=== PATIENT | female | born 1990 | race Hispanic/Latino ===

== ENCOUNTER 2017-04-19 13:27 | Inpatient (IN) | payer BC ==
--- NOTE | 2017-04-19 14:36 | C.PDOC ---
History Of Present Illness 26 year old female with Hx of depression, SI/HI and insomnia presents to the ED complaining of increased depression that started last week, she tried to OD with meclizine and other drugs last Saturday, patient went to her psychiatrist who sent her here for evaluation. Time Seen by Provider: 04/19/17 13:44 Chief Complaint (Nursing): Psychiatric Evaluation History Per: Patient History/Exam Limitations: no limitations Onset/Duration Of Symptoms: Hrs Current Symptoms Are (Timing): Still Present Suicide/Self Injury Attempted (Context): Ingestion Modifying Factor(s): None Associated Symptoms: Depression, Suicidal Thoughts, Suicidal Plan Recent travel outside of the [place]: No Additional History Per: Patient Past Medical History Reviewed: Historical Data, Nursing Documentation, Vital Signs Vital Signs: Last Vital Signs Temp 97.3 F L 04/19/17 13:33 Pulse 70 04/19/17 13:33 Resp 16 04/19/17 13:33 BP 129/86 04/19/17 13:33 Pulse Ox 98 04/19/17 16:52 - Medical History PMH: Anxiety, Depression Surgical History: No Surg Hx Family History: States: Unknown Family Hx - Social History Hx Alcohol Use: Yes Hx Substance Use: Yes - Immunization History Hx Tetanus Toxoid Vaccination: No Hx Influenza Vaccination: No Hx Pneumococcal Vaccination: No Review Of Systems Constitutional: Negative for: Fever, Chills Cardiovascular: Negative for: Chest Pain Respiratory: Negative for: Shortness of Breath Gastrointestinal: Negative for: Nausea, Vomiting, Abdominal Pain Neurological: Negative for: Weakness, Numbness Psych: Positive for: Depression, Suicidal ideation Physical Exam - Physical Exam Appears: Non-toxic, Other (Depressed) Skin: Normal Color, Warm, Dry Head: Atraumatic, Normacephalic Oral Mucosa: Moist Neck: Normal ROM, Supple Chest: Symmetrical Cardiovascular: Rhythm Regular, No Murmur Respiratory: Normal Breath Sounds, No Accessory Muscle Use, No Rales, No Rhonchi , No Wheezing Gastrointestinal/Abdominal: Soft, No Tenderness, No Guarding, No Rebound Extremity: Normal ROM, No Pedal Edema, No Deformity, No Swelling Neurological/Psych: Oriented x3, Normal Speech, Normal Cognition, Other (No focal deficits) Gait: Steady ED Course And Treatment - Laboratory Results Result Diagrams: 04/19/17 14:56 04/19/17 14:56 Lab Interpretation: No Acute Changes O2 Sat by Pulse Oximetry: 98 (On RA) Pulse Ox Interpretation: Normal Medical Decision Making Medical Decision Making: Impression : 26 y/o female with Hx of depression presents with SI Plan: * Blood work, UA ordered Patient was placed on a 1:1 due to her SI/HI and PES was called Labs ordered and reviewed. In my clinical judgment patient is medically cleared and stable for psychiatric admission. PES completed evaluation and discussed case with psychiatrist Dr Gr for admission to psych unit for depression and anxiety Disposition - Disposition Disposition: HOSPITALIZED Disposition Time: 16:51 Condition: STABLE - POA Present On Arrival: None - Clinical Impression Clinical Impression: Depression, Anxiety - PA / CUSHION GUM APPLICATOR / Resident Statement MD/DO has reviewed & agrees with the documentation as recorded. - Scribe Statement The provider has reviewed the documentation as recorded by the Scribe Vlad Perry All medical record entries made by the Scribe were at my direction and personally dictated by me. I have reviewed the chart and agree that the record accurately reflects my personal performance of the history, physical exam, medical decision making, and the department course for this patient. I have also personally directed, reviewed, and agree with the discharge instructions and disposition. Decision To Admit - Pt Status Changed To: Hospital Disposition Of: Inpatient - Admit Certification Admit to Inpatient:: After my assessment, the patient will require hospitalization for at least two midnights. This is because of the severity of symptoms shown, intensity of services needed, and/or the medical risk in this patient being treated as an outpatient. - InPatient: Physician Admission Certification: I certify that this patient requires 2 or more midnights of care for the following reason:: Patient with depression and anxiety, prior SI and prior attempt with OD. - . Bed Request Type: Psychiatry Admitting Physician: John Gr Patient Diagnosis: Depression, Anxiety
[2017-04-19 14:44] LABS: RBC URINE < 1 /hpf (0-3); URINE BILIRUBIN NEGATIVE (NEGATIVE); URINE BLOOD NEGATIVE (NEGATIVE); URINE COLOR Yellow (YELLOW); URINE GLUCOSE (UA) NORMAL (Normal); URINE KETONE NEGATIVE (NEGATIVE); URINE LEUKOCYTE ESTERASE NEG Leu/uL (Negative); URINE PROTEIN NEGATIVE (NEGATIVE); URINE UROBILINOGEN NORMAL mg/dL (0.2-1.0); WBC URINE < 1 /hpf (0-5)
[2017-04-19 15:00] LABS: BASO % 0.5 % (0.0-2.0); EOS # 0.1 K/uL (0.0-0.7); EOS % 1.1 % (0.0-4.0); HEMATOCRIT 42.3 % (34.0-47.0); LYMPH # 1.5 K/uL (1.0-4.3); LYMPH % 19.2 % (20.0-40.0); MEAN CELL VOLUME 91.9 fL (81.0-99.0); MEAN CORPUSCULAR HEMOGLOBIN 31.1 pg (27.0-31.0); MEAN CORPUSCULAR HGB CONC 33.8 g/dL (33.0-37.0); MEAN PLATELET VOLUME 8.4 fL (7.2-11.7); MONO # 0.6 K/uL (0.0-0.8); MONO % 7.8 % (0.0-10.0); RED CELL DISTRIBUTION WIDTH 13.3 % (11.5-14.5); WHITE BLOOD COUNT 7.6 K/uL (4.8-10.8)
[2017-04-19 15:15] LABS: CHLORIDE 101 mmol/L (98-107)
[2017-04-19 15:16] LABS: SODIUM 136 mmol/L (132-148)
[2017-04-19 15:18] LABS: ALB/GLOB RATIO 1.2 (1.0-2.1); ALKALINE PHOSPHATASE 52 U/L (38-126); AST/SGOT 20 U/L (14-36); BILIRUBIN,TOTAL 0.6 mg/dL (0.2-1.3); BLOOD UREA NITROGEN 12 mg/dL (7-17); CARBON DIOXIDE 23 mmol/L (22-30); GFR AFRICAN-AMERICAN > 60; TOTAL PROTEIN 8.1 g/dL (6.3-8.3)
[2017-04-19 15:19] LABS: ALCOHOL SERUM < 10 mg/dl (0-10); ALT/SGPT 39 U/L (9-52); CALCIUM 9.1 mg/dl (8.6-10.4); GLUCOSE,RANDOM 78 mg/dL (65-105)
[2017-04-19 15:21] LABS: POTASSIUM 3.7 mmol/L (3.6-5.2)
--- NOTE | 2017-04-19 18:20 | PCM.BM ---
Treatment Plan Problems - Problems identified on initial assessmt Depression Date Initiated: 04/19/17 Time Initiated: 18:00 Assessment reference: NA Status: Active Anxiety Date Initiated: 04/19/17 Time Initiated: 18:00 Assessment reference: NA Status: Active Treatment assets and liabiliti Patient Assests: adapts well, cooperative, ADL independent, physically healthy, negotiates basic needs, cognitively intact Patient Liabilities: live alone (lives wih your boyfriend), financial problems, poor support system, substance abuse (THC) - Milieu Protocol Maintain good personal hygiene: daily Encourage regular showers, daily Remind patient to perform daily oral care, other Assist patient to perform ADL's (Self) Conduct patient checks and document Observation sheet: Q15 minutes (For safety) Maintain personal safety: every shift Educate patient to report safety concerns to staff, every shift Monitor environment for contraband/sharps Medication safety: Monitor for expected outcome, potential side effects: every shift, Assess barriers to learning: every shift, Assess readiness for medication education: every shift
--- NOTE | 2017-04-20 10:39 | PCM.PSYCH ---
Initial Psychiatric Evaluation - Initial Psychiatric Evaluation Type of Admission: Voluntary Legal Status: Capacity Chief Complaint (in patient's own words): I was feeling depressed." History of Present Illness and Precipitating Events: This is 26 year old CF, who currently lives with her BF and currently works wholesale parts salesperson, referred to the by her therapist Floyd and her psychiatrist Dr. Simon from [facility] because of depressed mood and possible suicidal ideation. Pt denies any past history of any inpatient psychiatric hospitalization. She reports that last week she was feeling increasingly depressed and she overdosed on meclizine, propanol and sleeping aid last Saturday and that she wrote a suicide note as well. Yesterday she informed her psychiatrist and therapist referred her to the for complete evaluation. As per the ED notes, pt reported feelings of hopelessness and helplessness and poor sleep and poor appetite. Today during evaluation, pt reports that she is feeling better and now she wants to leave. She still reports depressed mood but denies any suicidal ideation or homicidal ideation. She also reports mood swings but denies any racing of thoughts. She states that she can manage herself and she signed 48 hours notice. Pt denied any AVH or any psychotic symptoms. Spoke with pt.s BFGino. As per him pt is doing much better. She is not suicidal now and he can take her back. Current Medications: Active Medications Generic Name Dose Route Start Last Admin Trade Name Freq PRN Reason Stop Dose Admin Escitalopram Oxalate 10 mg 04/20/17 10:00 04/20/17 10:24 Lexapro PO 10 mg DAILY MARIPOSA Administration Gabapentin 100 mg 04/20/17 10:00 04/20/17 10:24 Neurontin PO 100 mg TID MARIPOSA Administration Home Med 1 each 04/20/17 10:00 Norethindrone-E.Estradiol-Iron [Taytulla 1 Mg-20 Mcg Capsule] PO DAILY MARIPOSA Hydroxyzine HCl 25 mg 04/19/17 19:07 04/19/17 21:09 Atarax PO 25 mg Q6 PRN Administration Agitation Pneumococcal Polyvalent Vaccine 0.5 ml 04/22/17 10:00 Pneumovax 23 Vaccine IM 04/22/17 10:01 .ONCE ONE Propranolol HCl 10 mg 04/19/17 19:07 Inderal PO DAILY PRN Anxiety Trazodone HCl 50 mg 04/19/17 22:00 04/19/17 21:09 Desyrel PO 50 mg HS MARIPOSA Administration Past Psychiatric History - Past Psychiatric History Previous Treatment History: None Pertinent Medical Hx (Current Medical&Sleep Prob, Allergies): Allergies Allergy/AdvReac Type Severity Reaction Status Date / Time No Known Allergies Allergy Verified 04/19/17 13:36 Escitalopram [Lexapro] 10 mg PO DAILY 04/19/17 Norethindrone-E.estradiol-Iron [Taytulla 1 mg-20 Mcg Capsule] 1 each PO DAILY Propranolol [Inderal] 10 mg PO DAILY PRN 04/19/17 Review of Systems - Review of Systems All systems: reviewed and no additional remarkable complaints except - Psychiatric Psychiatric: Anxiety, Depression, Irritability Mental Status Examination - Personal Presentation Personal Presentation: Looks stated age - Affect Affect: Constricted, Depressed - Motor Activity Motor Activity: Psychomotor Agitation - Reliability in Providing Information Reliability in Providing Information: Fair - Speech Speech: Organized - Mood Mood: Depressed, Anxious - Formal Thought Process Formal Thought Process: No Impairment - Obsessions/Compulsions Obsessions: No Compulsions: No - Cognitive Functions Orientation: Person, Place, Situation, Time Sensorium: Alert Attention/Concentration: Attentive Abstract Thinking: Gill Estimate of Intelligence: Below average Judgement: Imparied, as evidence by: Poor judgement, Imparied, as evidence by: Lack of insight into illness - Risk Risk: Suicidal, Diminished functioning - Strength & Assets Inventory Strength & Assets Inventory: Family support DSM 5 DX - DSM 5 DSM 5 Diagnosis: Major depressive disorder recurrent severe without psychotic features - Recommended/Plan of Treatment Treatment Recommendations and Plan of Treatment: Major depressive disorder recurrent severe without psychotic features CBT Psychoeducation Supportive therapy, group therapy, individual therapy Escitalopram 10 mg PO Daily Trazodone 50 mg by mouth daily at bedtime Neurontin 100 mg PO TID - Smoking Cessation Smoking Cessation Initiated: No
[2017-04-20] MEDS: NORETHINDRONE E ESTRADIOL IRON PO SCH (11:11)
[2017-04-21 08:50] VITALS: BP 105/69; PULSE 52; RESP 16; TEMP 97.9; O2SAT 99
[2017-04-21] MEDS: NORETHINDRONE E ESTRADIOL IRON PO SCH (10:46)
--- NOTE | 2017-04-21 11:43 | PCM.PYCHDC ---
Mental Status Examination - Mental Status Examination Orientation: Person, Place, Situation, Time Memory: Intact Mood: Neutral Affect: Constricted Speech: Soft Attention: WNL Concentration: WNL Association: WNL Fund of Knowledge: WNL Formal Thought Process: No Impairment Description of patient's judgement and insight: Good, fair Psychotic Thoughts and Behaviors: Denies any AVH Suicidal Ideation: No Current Homicidal Ideation?: No Discharge Summary - Discharge Note Reason for Hospitalization: This is 26 year old CF, who currently lives with her and currently works repair department manager, referred to the by her therapist Floyd and her psychiatrist Dr. Simon from [facility] because of depressed mood and possible suicidal ideation. Pt denies any past history of any inpatient psychiatric hospitalization. She reports that last week she was feeling increasingly depressed and she overdosed on meclizine, propanol and sleeping aid last Saturday and that she wrote a suicide note as well. Yesterday she informed her psychiatrist and therapist referred her to the for complete evaluation. As per the ED notes, pt reported feelings of hopelessness and helplessness and poor sleep and poor appetite. Today during evaluation, pt reports that she is feeling better and now she wants to leave. She still reports depressed mood but denies any suicidal ideation or homicidal ideation. She also reports mood swings but denies any racing of thoughts. She states that she can manage herself and she signed 48 hours notice. Pt denied any AVH or any psychotic symptoms. Spoke with pt.s Gino, #[phone]. As per him pt is doing much better. She is not suicidal now and he can take her back. Consultations:: List each consultation separately and include: 1. Reason for request. 2. Findings. 3. Follow-up Summary of Hospital Course include:: 1. Description of specific treatment plan utilized for patients during their course of treatmen. 2. Summarize the time- course for resolution of acute symptoms and/or regressed behaviors. 3. Describe issues identified and worked on during hospitalization. 4. Describe medication utilized. 5. Describe medical problems identified and treated. 6. Reassessment of suicide risk Summary of Hospital Course: During the course of her stay, patient (pt) started progressively improving and she no longer remained irritable, depressed, and suicidal. Her mood and anxiety were improved and she started attending groups and meetings and started socializing. Patient denied any feelings of hopelessness, helplessness, and worthlessness, denied any problem with the sleep or appetite, denied suicidal ideation or homicidal ideation. Pt denied any auditory or visual hallucinations. Some changes were made in her current medications and patient was discharged on following medications. She tolerated these medications very well and denied any side effects. She was discharged to her psychiatrist. - Final Diagnosis (DSM 5) Condition upon Discharge: STABLE DSM 5: Major depressive disorder recurrent severe without psychotic features Disposition: HOME/ ROUTINE Follow-up Treatment Plan: Education: Pt was educated and counseled about the risks and benefits of taking and not taking medications. Pt was educated and counseled about the risks of drinking and abusing drugs. Pt was educated and counseled to go to the ER or call 911 if pt develop suicidal ideation or homicidal ideation, worsening of symptoms or severe side effects of the meds. Prescriptions/Medication Reconciliation: Escitalopram [Lexapro] 10 mg PO DAILY #30 tab Gabapentin [Neurontin] 300 mg PO BID #60 cap traZODone [Desyrel] 50 mg PO HS #30 tab - Smoking Cessation Smoking Cessation Medication prescribed: No - Antipsychotic Medications Pt discharged on 2 or more routine antipsychotic medications: No
[2017-04-21] MEDS ORDERED: Influenza Vaccine 60 mcg/0.5 mL SYR (4YR UP) IM ONE (18:31)
[2017-04-22] MEDS ORDERED: Pneumococcal 23-Valent Vaccine IM ONE (10:00)
== END 2017-04-21 12:29 | disposition home or self-care (01) | DRG 885 ==
LOC: C.ER 13:27 → C.5E 16:52
PROVIDERS: ADMIT Psychiatry & Neurology Psychiatry; ATTEND Psychiatry & Neurology Psychiatry
PROC: GZHZZZZ Group Psychotherapy (ICD-10-PCS; principal; 2017-04-19)
PROC: GZ58ZZZ Individual Psychotherapy, Cognitive-Behavioral (ICD-10-PCS; 2017-04-19)
PROC: GZ56ZZZ Individual Psychotherapy, Supportive (ICD-10-PCS; 2017-04-19)
DX: F33.2 Major depressive disorder, recurrent severe without psychotic features (principal); R45.851 Suicidal ideations; G47.00 Insomnia, unspecified; F41.9 Anxiety disorder, unspecified; F12.10 Cannabis abuse, uncomplicated